=== PATIENT | female | born 1985 | race Hispanic/Latino ===

== ENCOUNTER 2019-08-05 11:06 | Outpatient (CLI) | payer OTHER ==
--- NOTE | 2019-08-05 15:16 | MMO ---
Bilateral MAMMO Bilat Diag [facility]. CLINICAL HISTORY: Patient is 34 years old and is seen for diagnostic exam,lump or thickening in the outer region of the left breast, non-bloody discharge in both breasts and pain in the outer region of the left breast. The patient has the following family history of breast cancer: cousin female. VIEWS: The views performed were: bilateral craniocaudal with tomosynthesis; bilateral mediolateral oblique with tomosynthesis; and bilateral mediolateral with tomosynthesis. FILMS COMPARED: The present examination has been compared to a prior imaging study performed at [facility] on 08/05/2019. MAMMOGRAM FINDINGS: There are scattered fibroglandular densities. There is a focal asymmetry seen in the left breast. This demonstrates an appearance of an island of benign breast parenchyma, and is confirmed by ultrasound. There is also a small sub-cm cyst of this region by ultrasound. There are no suspicious masses, suspicious calcifications, or new areas of architectural distortion. IMPRESSION: THERE IS NO MAMMOGRAPHIC EVIDENCE OF MALIGNANCY. THERE IS A SUB-CM CYST OF THE UPPER OUTER LEFT BREAST, AT THE SITE OF CLINICAL CONCERN. OTHERWISE, NO SUSPICIOUS MAMMOGRAPHIC OR SONOGRAPHIC ABNORMALITIES ARE PRESENT TO CORRELATE WITH THE SITE OF PALPABLE CONCERN. THE PATIENT WILL BE REFERRED BACK TO HER CLINICIAN FOR FURTHER CARE. BIOPSY SHOULD NOT BE PRECLUDED BY THE ABSCENCE OF IMAGING FINDINGS, IN THE SETTING OF CLINICAL CONCERN FOR MALIGNANCY. A ROUTINE FOLLOW-UP MAMMOGRAM AT AGE 38 IS RECOMMENDED. THE RESULTS OF THIS EXAM WERE SENT TO THE PATIENT. ACR BI-RADS Category 2 - Benign finding MAMMOGRAPHY NOTE: 1. A negative mammogram report should not delay a biopsy if a dominant of clinically suspicious mass is present. 2. Approximately 10% to 15% of breast cancers are not detected by mammography. 3. Adenosis and dense breasts may obscure an underlying neoplasm. Reported by: DALILA PEACOCK MD Electonically Signed: [id number]
--- NOTE | 2019-08-05 15:49 | ULT ---
DIAGNOSTIC LEFT MAMMOGRAM: CLINICAL HISTORY: Palpable lump/pain of upper outer left breast. Exam is performed in conjunction with diagnostic mammography. FINDINGS: At the site of concern, there is a round circumscribed anechoic focus with through transmission of so und and absence of internal flow consistent with a small benign cyst, 4 mm in size. The patient does report an immediately adjacent palpable area which reveals the appearance of normal breast parenchym a by sonographic imaging. No suspicious mammographic abnormalities are visualized. IMPRESSION: 1. BI-RADS 2 - benign findings. 2. Benign cyst and benign-appearing breast parenchyma of the upper outer left breast at the region o f clinical concern. There are no suspicious mammographic or sonographic abnormalities identified. T he patient will be referred back to her clinician for further management in this regard. Absence of imaging findings should not defer biopsy if there is clinical suspicion of malignancy. 3. At a minimum, patient should return to routine annual mammographic screening. BIRADS 2: Benign Finding(s) Routine annual screening mammography (for women over age 40) Findings were discussed in person with the patient at the time of diagnostic exam. CODE CR POS: OFF
== END 2019-08-05 11:07 | disposition home or self-care (01) ==
LOC: BICMAMMO 11:06
PROVIDERS: ATTEND Physician Assistant
DX: N64.4 Mastodynia (principal); N60.01 Solitary cyst of right breast
CPT/HCPCS: 77066; G0279